=== PATIENT | female | born 1985 | race Caucasian/White ===

== ENCOUNTER 2018-02-13 12:45 | Day surgery (SDC) | payer OTHER ==
[~2018-02-13] VITALS: Ht 157.5 cm; Wt 81.3 kg
[2018-02-13 13:14] VITALS: BP 117/78; PULSE 61; TEMP 98.4
[2018-02-13] MEDS ORDERED: SIMETHICONE80 MG PO (13:24)
[2018-02-13] MEDS ORDERED: PHENERGAN 25 TA25 MG PO (13:24)
[2018-02-13] MEDS ORDERED: PRILOSEC 20MG20 MG PO (13:24)
[2018-02-13] MEDS ORDERED: CARAFATE 1GM1 G PO (13:25)
[2018-02-13] MEDS ORDERED: IBU800 M1 PO (13:25)
[2018-02-13] MEDS ORDERED: BENADRYL25 M2 PO (13:25)
[2018-02-13 15:00] VITALS: BP 107/54; PULSE 52; TEMP 97.8
[2018-02-13 15:15] VITALS: BP 96/60; PULSE 50
[2018-02-13 15:30] VITALS: BP 93/66; PULSE 70
[2018-02-13 15:45] VITALS: BP 101/69; PULSE 62
== END 2018-02-13 16:10 | disposition home or self-care (01) ==
LOC: SDCO 12:45
DX: K30 Functional dyspepsia (principal); R11.0 Nausea; K58.9 Irritable bowel syndrome, unspecified; K21.9 Gastro-esophageal reflux disease without esophagitis; Z87.19 Personal history of other diseases of the digestive system; Z88.0 Allergy status to penicillin
CPT/HCPCS: J2250; J2405; J3010

== ENCOUNTER 2018-04-07 13:09 | Day surgery (SDC) | payer OTHER ==
[~2018-04-07] VITALS: Ht 157.5 cm; Wt 78.4 kg
[~2018-04-07 13:09] MED LIST: BENADRYL25 M2 PO; CARAFATE 1GM1 G PO; IBU800 M1 PO; PHENERGAN 25 TA25 MG PO; PRILOSEC 20MG20 MG PO; SIMETHICONE80 MG PO
[2018-04-07] MEDS ORDERED: TYLENOL 325MG325 MG PO (13:24)
[2018-04-07] MEDS ORDERED: PRIL40 PO (13:25)
[2018-04-07] MEDS ORDERED: MIRALAX PA17 GM/Dose PO (13:27)
[2018-04-07 13:32] VITALS: BP 144/81; PULSE 83; TEMP 98.3
[2018-04-07] MEDS ORDERED: PAMELOR 25MG25 MG PO (14:30)
[2018-04-07 14:40] VITALS: BP 99/66; PULSE 63; TEMP 98.9
[2018-04-07 14:55] VITALS: BP 96/60; PULSE 62
[2018-04-07 14:56] VITALS: BP 99/66; PULSE 67
== END 2018-04-07 15:35 | disposition home or self-care (01) ==
LOC: SDCO 13:09
DX: K59.00 Constipation, unspecified (principal); R19.7 Diarrhea, unspecified; K22.70 Barrett's esophagus without dysplasia; K21.9 Gastro-esophageal reflux disease without esophagitis; R10.13 Epigastric pain; K58.9 Irritable bowel syndrome, unspecified; E66.9 Obesity, unspecified; Z68.32 Body mass index [BMI] 32.0-32.9, adult; Z88.0 Allergy status to penicillin; Z90.710 Acquired absence of both cervix and uterus; Z90.49 Acquired absence of other specified parts of digestive tract
CPT/HCPCS: J2704

== ENCOUNTER 2019-08-03 06:16 | Day surgery (SDC) | payer OTHER ==
[~2019-08-03] VITALS: Ht 157.5 cm; Wt 77.4 kg
[~2019-08-03 06:16] MED LIST changes: +MIRALAX PA17 GM/Dose PO; +PAMELOR 25MG25 MG PO; +PRIL40 PO; +TYLENOL 325MG325 MG PO
[2019-08-03 06:49] VITALS: BP 101/77; PULSE 60; TEMP 98.5
[2019-08-03] MEDS ORDERED: EMGALITY120 MG/1 M SQ (06:54)
[2019-08-03] MEDS ORDERED: MAG-OX 400400 MG/TAB PO (06:55)
[2019-08-03] MEDS ORDERED: ERGOCALCIFER50000 IU PO (06:55)
[2019-08-03 08:25] VITALS: BP 102/62; PULSE 64; TEMP 97.9
[2019-08-03 08:40] VITALS: BP 105/72; PULSE 50
--- NOTE | 2019-08-03 08:40 | NUR ---
Patient states she is feeling much better at this time. Tolerating juice without difficulty. Would now like a muffin. Vital signs stable. Will continue to monitor.
[2019-08-03 08:55] VITALS: BP 97/57; PULSE 46
[2019-08-03 09:10] VITALS: BP 105/56; PULSE 59
--- NOTE | 2019-08-03 09:10 | NUR ---
Patient states she is feeling well and ready to go home. Explained that if she did not hear back from office within the next few days to call herself. Phone number provided. Vital signs stable. To be driven home by friend.
--- NOTE | 2019-08-03 09:20 | NUR ---
Discharge instructions reviewed with patient. All questions answered. Wheeled down to lobby. To be driven home by friend.
--- NOTE | 2019-08-03 09:34 | NUR ---
Patient brought back to [facility] [address] via cart. Ambulated to chair without difficulty. Alert and oriented, states she is having mild nausea. Hooked to monitors, vital signs stable. Report recieved from austin Burrell. Patient states she would like just apple juice at this time. Will continue to monitor.
== END 2019-08-03 09:23 | disposition home or self-care (01) ==
LOC: SDCO 06:16
DX: K21.0 Gastro-esophageal reflux disease with esophagitis (principal); K22.70 Barrett's esophagus without dysplasia; K29.30 Chronic superficial gastritis without bleeding; K58.9 Irritable bowel syndrome, unspecified; G43.909 Migraine, unspecified, not intractable, without status migrainosus; Z90.49 Acquired absence of other specified parts of digestive tract; Z90.710 Acquired absence of both cervix and uterus; Z88.3 Allergy status to other anti-infective agents; Z88.0 Allergy status to penicillin
CPT/HCPCS: J2704; J3010; J7030